=== PATIENT | female | born 1995 | race Hispanic/Latino ===

== ENCOUNTER 2021-08-20 05:47 | Inpatient (IN) | payer MEDICAID ==
[~2021-08-20] VITALS: Ht 157.5 cm; Wt 73.9 kg
[2021-08-20] MEDS ORDERED: MEPERIDINE-PF 50 MG/ML SYG IVP ONE (06:00)
[2021-08-20] MEDS ORDERED: LACTATED RINGERS 500 ML 500 ML IV PRN (06:00)
[2021-08-20] MEDS ORDERED: ROPIVACAINE 0.2% 100ML VIAL 100 ML EP SCH (06:00)
[2021-08-20] MEDS ORDERED: NALOXONE HCL 0.4 MG/1 ML ML IV PRN (06:00)
[2021-08-20] MEDS ORDERED: EPHEDRINE SULFATE 50 MG/ML AMPULE IVP PRN (06:00)
[2021-08-20] MEDS ORDERED: PROMETHAZINE HCL 25 MG/ML 1ML AMPULE IM ONE (06:00)
[2021-08-20] MEDS ORDERED: PREN-196 PO (06:22)
[2021-08-20] MEDS ORDERED: OXYTOCIN-LR 20 UNITS/1000 ML 1,000 ML IV SCH (06:30)
[2021-08-20 06:45] LABS: HEMATOCRIT 37.9 % (36-48); MEAN CORPUSCULAR HEMOGLOBIN 30.2 pg (27.0-33.0); MEAN CORPUSCULAR HGB CONC 33.5 g/dL (32.0-36.0); RED BLOOD CELL COUNT(AUTO) 4.21 MIL/uL (4.00-5.50); RED CELL DISTRIBUTION WIDTH 13.1 % (11.0-15.5); WHITE BLOOD COUNT (AUTO) 6.3 K/uL (4.8-10.8)
[2021-08-20 06:46] LABS: APPEARANCE,URINE Cloudy (CLEAR); BILIRUBIN,URINE Negative (NEGATIVE); COLOR,URINE Yellow (YELLOW); GLUCOSE, URINE (UA) Negative (NEGATIVE); KETONES,URINE Negative (NEGATIVE); LEUKOCYTE ESTERASE ,URINE Negative (NEGATIVE); NITRATE,URINE Negative (NEGATIVE); OCCULT BLOOD,URINE Negative (NEGATIVE); PH,URINE 6.5 (5.0-8.0); PROTEIN,URINE Negative (NEGATIVE); UROBILINOGEN,URINE 0.2 mg/dL (0.2-1.0)
[2021-08-20 07:16] VITALS: BP 107/75
[2021-08-20 07:16] LABS: RBC,URINE None Seen /HPF (0-1); WBC,URINE 0-1 /HPF (0-1)
[2021-08-20 07:17] LABS: BACTERIA,URINE Rare /HPF (None Seen); SQUAMOUS EPITHELIAL CELL,UR 0-2 /HPF (0-2)
[2021-08-20] MEDS: LACTATED RINGERS 1000ML 1,000 ML IV PRN ×2 (09:58→18:06)
[2021-08-20] MEDS ORDERED: BENZOCAINE/LANOLIN/ALOE VERA 60 ML AEROSOL TP PRN (19:30)
[2021-08-20] MEDS ORDERED: LANOLIN 30GM OINTMENT TP PRN (19:30)
[2021-08-20] MEDS ORDERED: ACETAMINOPHEN WITH CODEINE 1 TAB TAB PO PRN (19:30)
[2021-08-20] MEDS ORDERED: WITCH HAZEL 1 PAD TP PRN (19:30)
[2021-08-20] MEDS ORDERED: ACETAMINOPHEN 325 MG TAB PO PRN (19:30)
[2021-08-20] MEDS: DOCUSATE SODIUM 100 MG CAP PO SCH (20:50)
[2021-08-20] MEDS: IBUPROFEN 600 MG TABLET PO PRN (20:50)
[2021-08-20 21:30] VITALS: BP 120/81
[2021-08-20] MEDS: OXYTOCIN-LR 20 UNITS/1000 ML 1,000 ML IV SCH (22:18)
[2021-08-20 23:40] VITALS: BP 116/73
[2021-08-21] MEDS: OXYTOCIN-LR 20 UNITS/1000 ML 1,000 ML IV SCH (00:43)
[2021-08-21 03:37] VITALS: BP 107/65
[2021-08-21] MEDS: IBUPROFEN 600 MG TABLET PO PRN ×2 (05:20→14:27)
[2021-08-21 07:49] VITALS: BP 102/59
[2021-08-21] MEDS: DOCUSATE SODIUM 100 MG CAP PO SCH (09:16)
[2021-08-21 11:56] VITALS: BP 119/85
[2021-08-21 13:09] LABS: HEPATITIS Bs ANTIGEN SCREEN P Negative (Negative)
[2021-08-21 17:12] VITALS: BP 110/72
[2021-08-21] MEDS ORDERED: IBUP-2070 PO (17:18)
[2021-08-21 19:23] VITALS: BP 116/74
== END 2021-08-21 20:00 | disposition home or self-care (01) | DRG 560 ==
LOC: LDH 05:47 → WSH 23:28
PROVIDERS: ADMIT Specialist; ATTEND Specialist
PROC: 10E0XZZ Delivery of Products of Conception, External Approach (ICD-10-PCS; principal; 2021-08-20)
PROC: 3E0R3BZ Introduction of Anesthetic Agent into Spinal Canal, Percutaneous Approach (ICD-10-PCS; 2021-08-20)
PROC: 00HU33Z Insertion of Infusion Device into Spinal Canal, Percutaneous Approach (ICD-10-PCS; 2021-08-20)
DX: O80 Encounter for full-term uncomplicated delivery (principal); Z37.0 Single live birth; Z3A.39 39 weeks gestation of pregnancy
CPT/HCPCS: 36415; 81001; 85027; 86592; 86850; 86900; 86901; 87340; A4314; G0378; J2590; J2795; J7120

== ENCOUNTER 2021-10-26 06:41 | Day surgery (SDC) | payer MEDICAID ==
[2021-10-24 11:06] LABS: BASOPHILS % (AUTO) 0.5 % (0.0-5.0); EOSINOPHILS % (AUTO) 1.7 % (0.0-8.0); HEMATOCRIT 40.7 % (36-48); LYMPHOCYTES % (AUTO) 29.2 % (21.0-51.0); MEAN CORPUSCULAR HEMOGLOBIN 29.3 pg (27.0-33.0); MEAN CORPUSCULAR HGB CONC 32.4 g/dL (32.0-36.0); MEAN CORPUSCULAR VOLUME 90.4 fL (79-99); MONOCYTES % (AUTO) 9.5 % (3.0-13.0); NEUTROPHILS % (AUTO) 58.8 % (40.0-77.0); PLATELET COUNT (AUTO) 254 K/uL (130-400); RED CELL DISTRIBUTION WIDTH 13.1 % (11.0-15.5); WHITE BLOOD COUNT (AUTO) 5.8 K/uL (4.8-10.8)
[2021-10-24 11:36] VITALS: BP 106/64
[2021-10-26] VITALS (16 sets, daily range): BP systolic 99–121; BP diastolic 65–80
[~2021-10-26] VITALS: Ht 157.5 cm; Wt 67.3 kg
[2021-10-26] MEDS ORDERED: LACTATED RINGERS 1000ML 1,000 ML IV ONE (07:24)
[2021-10-26] MEDS ORDERED: CEFAZOLIN SODIUM 1 GM VIAL ONE (07:24)
[2021-10-26] MEDS ORDERED: SUCCINYLCHOLINE 200MG/10ML SYR ONE (09:14)
[2021-10-26] MEDS ORDERED: MIDAZOLAM HCL 1 MG/ML 2ML VIAL ONE (09:14)
[2021-10-26] MEDS ORDERED: LIDOCAINE PF 100MG/5ML (2%) SYRINGE 5ML ONE (09:14)
[2021-10-26] MEDS ORDERED: PROPOFOL 10 MG/ML 20ML VIAL IV ONE (09:14)
[2021-10-26] MEDS ORDERED: FENTANYL CITRATE PF 50 MCG/1 ML 2ML VIAL ONE (09:15)
[2021-10-26] MEDS ORDERED: ROCURONIUM 10MG/1ML SYR 10 MG/ML ML ONE (09:15)
[2021-10-26] MEDS ORDERED: ONDANSETRON 4MG INJ ONE (09:50)
[2021-10-26] MEDS ORDERED: GLYCOPYRROLATE 1 MG/5 ML SYRINGE ONE (10:10)
[2021-10-26] MEDS ORDERED: NEOSTIGMINE 5MG/5ML SYR IV ONE (10:11)
[2021-10-26] MEDS ORDERED: MEPERIDINE-PF 25 MG/ML SYG ONE (10:45)
== END 2021-10-26 12:00 | disposition home or self-care (01) ==
LOC: DAH 06:41
PROVIDERS: ATTEND Specialist
DX: Z30.2 Encounter for sterilization (principal); Z20.822 Contact with and (suspected) exposure to COVID-19; N81.3 Complete uterovaginal prolapse; Z90.49 Acquired absence of other specified parts of digestive tract
CPT/HCPCS: 36415; 58671; 84703; 85025; 86850; 86900; 86901; 87635; A4215 ×2; A4221; A4222; A4223; A4351; A4510; A4600; A4663; A6260; C1769 ×3; C9803; J0690; J2175; J2250; J2405; J2710; J3010; J3490 ×3; J7030; J7120 ×2; J0330; J2001; J2704